=== PATIENT | male | born 1985 | race Two or more races ===

== ENCOUNTER 2018-08-04 14:22 | Emergency (ER) | payer BC, OTHER ==
[2018-08-04 14:38] LABS: ADD MAN DIFF? NO
[2018-08-04 14:42] LABS: BASOPHIL # 0.1 10^3/ul (0.0-0.1); BASOPHILS % 0.8 % (0.0-2.0); EOSINOPHILS # 0.1 10^3/ul (0.0-0.5); EOSINOPHILS % 1.8 % (0.0-7.0); HEMATOCRIT 41.9 % (42.0-52.0); HEMOGLOBIN 14.3 g/dl (14.0-18.0); LYMPHOCYTES # 2.3 10^3/ul (0.8-2.9); LYMPHOCYTES % 36.5 % (15.0-51.0); MEAN CORPUSCULAR HEMOGLOBIN 28.3 pg (29.0-33.0); MEAN CORPUSCULAR HGB CONC 34.1 g/dl (32.0-37.0); MEAN PLATELET VOLUME 10.4 fl (7.4-10.4); MONOCYTE # 0.5 10^3/ul (0.3-0.9); NEUTROPHIL # 3.3 10^3/ul (1.6-7.5); NEUTROPHILS % 52.6 % (39.0-77.0); PLATELET COUNT 207 10^3/UL (140-415); RED BLOOD COUNT 5.05 10^6/ul (4.70-6.10); RED CELL DISTRIBUTION WIDTH 11.9 % (11.5-14.5)
[2018-08-04 14:42] LABS: WHITE BLOOD COUNT 6.2 10^3/ul (4.8-10.8)
[2018-08-04] MEDS: SOD CHLORIDE 0.9% 1,000 ML IV (14:46)
[2018-08-04 15:00] LABS: ANION GAP 11 (5-13); BLOOD UREA NITROGEN 5 mg/dl (7-20); CALCIUM 9.2 mg/dl (8.4-10.2); CARBON DIOXIDE 26 mmol/L (21-31); CHLORIDE 102 mmol/L (97-110); CREATININE 0.76 mg/dl (0.61-1.24); Estimated GFR > 60 mL/min (>60); GLUCOSE 205 mg/dl (70-220); POTASSIUM 3.4 mmol/L (3.5-5.1); SODIUM 139 mmol/L (135-144)
[2018-08-04] MEDS: ONDANSETRON 4 MG INJ IV (16:16)
[2018-08-04 16:18] LABS: ACETAMINOPHEN < 10.0 ug/ml (10.0-30.0)
[2018-08-04 16:18] LABS: ETHANOL < 10.0 mg/dl; SALICYLATE < 1.0 mg/dl (5.0-30.0)
== END 2018-08-04 16:38 | disposition home or self-care (01) ==
LOC: E/R 14:22
DX: E11.65 Type 2 diabetes mellitus with hyperglycemia (principal); R51 Headache; Z79.4 Long term (current) use of insulin
CPT/HCPCS: 36415; 70450; 80048; 80307; 82962; 85025; 96374; 99285-25